=== PATIENT | female | born 2000 | race African-American/Black ===

== ENCOUNTER 2021-07-22 19:50 | Emergency (ER) | payer SELFPAY ==
[~2021-07-22] VITALS: Ht 157.5 cm; Wt 47.2 kg
--- NOTE | 2021-07-22 20:02 | NUR ---
BIBMOTHER TO ER BED 16. AAOX4. NOT IN RESP DISTRESS. SATTING 98% ON RA. PT C/O ASTHMA EXACERBATION X 1 WEEK. REPORTS USING NEBULIZER BUT STILL TIGHT ON BREATHING. AWAITING MD FOR EVAL.
[2021-07-22] MEDS ORDERED: predniSONE 20 MG TABLET ONE ×2 (20:09→20:12)
[2021-07-22] MEDS ORDERED: ALBUTEROL FS 2.5 MG/3 ML VIAL.NEB ONE (20:27)
[2021-07-22] MEDS ORDERED: IPRATROPIUM NEB FS 0.5 MG/2.5 ML AMPUL.NEB ONE (20:27)
[2021-07-22] MEDS ORDERED: ALBUTEROL FS 2.5 MG/3 ML VIAL.NEB NEB ONE (20:30)
[2021-07-22] MEDS ORDERED: IPRATROPIUM NEB FS 0.5 MG/2.5 ML AMPUL.NEB NEB ONE (20:30)
[2021-07-22] MEDS ORDERED: predniSONE 20 MG TABLET PO ONE (20:30)
[2021-07-22 21:28] LABS: BASOPHILS % (AUTO) 1.1 % (0.0-2.0); EOSINOPHILS % (AUTO) 6.3 % (0.0-6.0); HEMATOCRIT 37 % (33-45); HEMOGLOBIN 11.6 g/dL (11.5-14.8); LYMPHOCYTES # (AUTO) 1.4 K/uL (0.8-4.8); LYMPHOCYTES % (AUTO) 38.8 % (20.0-44.0); MEAN CORPUSCULAR HGB CONC 32 g/dl (31.0-36.0); MEAN CORPUSCULAR VOLUME 78 fL (82-100); MONOCYTES # (AUTO) 0.3 K/uL (0.1-1.30); MONOCYTES % (AUTO) 8.3 % (2.0-12.0); NEUTROPHILS # (AUTO) 1.6 K/uL (1.8-8.9); NEUTROPHILS % (AUTO) 45.5 % (43.0-81.0); PLATELET COUNT (AUTO) 210 K/uL (150-450); RED BLOOD CELL COUNT(AUTO) 4.67 MIL/uL (4.0-5.2); WHITE BLOOD COUNT (AUTO) 3.5 K/uL (4.3-11.0)
[2021-07-22 21:41] LABS: CALCIUM, SERUM 9.1 mg/dL (8.5-10.1); CREATININE 0.9 mg/dL (0.6-1.3); POTASSIUM 3.1 mmol/L (3.5-5.1)
[2021-07-22] MEDS ORDERED: DEXA4TAB PO (22:03)
--- NOTE | 2021-07-22 23:12 | NUR ---
Patient discharged to home in stable condition. Written and verbal after care instructions given. Patient verbalizes understanding of instruction.
[2021-07-22 23:13] VITALS: BP 123/88
== END 2021-07-22 23:12 | disposition home or self-care (01) ==
LOC: ER 19:50
DX: R06.00 Dyspnea, unspecified (principal); J45.909 Unspecified asthma, uncomplicated
CPT/HCPCS: 36415; 71045; 80048; 83880; 85025; 85378; 93005; 94640 ×2; 99285; J7512 ×2

== ENCOUNTER 2021-12-25 00:08 | Emergency (ER) | payer SELFPAY ==
[~2021-12-25] VITALS: Ht 160 cm; Wt 47.6 kg
[~2021-12-25 00:08] MED LIST: DEXA4TAB PO
--- NOTE | 2021-12-25 00:55 | NUR ---
BIB FAMILY FOR C/O N/V AND BODY PAIN X 3 HRS, FEBRILE DURING TRIAGE. PATIENT IS AMBULATORY, ABLE TO PROVIDE URINE SAMPLE. PLACED COMFORTABLY IN BED. VITALS CHECKED.
[2021-12-25] MEDS ORDERED: ONDANSETRON HCL/PF 4 MG/2 ML VIAL ONE (01:22)
[2021-12-25] MEDS ORDERED: ACETAMINOPHEN ES 500 MG TABLET ONE (01:22)
[2021-12-25] MEDS ORDERED: IV NS 0.9% 1,000 ML BAG IV ONE (01:30)
[2021-12-25] MEDS ORDERED: ACETAMINOPHEN ES 500 MG TABLET PO ONE (01:30)
[2021-12-25] MEDS ORDERED: ONDANSETRON HCL/PF 4 MG/2 ML VIAL IVP ONE (01:30)
[2021-12-25 01:39] LABS: EOSINOPHILS % (AUTO) 1.1 % (0.0-6.0); HEMATOCRIT 41 % (33-45); HEMOGLOBIN 12.9 g/dL (11.5-14.8); LYMPHOCYTES # (AUTO) 0.2 K/uL (0.8-4.8); LYMPHOCYTES % (AUTO) 3.2 % (20.0-44.0); MEAN CORPUSCULAR HGB CONC 32 g/dl (31.0-36.0); MEAN CORPUSCULAR VOLUME 77 fL (82-100); MONOCYTES # (AUTO) 0.6 K/uL (0.1-1.30); MONOCYTES % (AUTO) 8.3 % (2.0-12.0); NEUTROPHILS # (AUTO) 6.5 K/uL (1.8-8.9); NEUTROPHILS % (AUTO) 87.4 % (43.0-81.0); PLATELET COUNT (AUTO) 254 K/uL (150-450); RED BLOOD CELL COUNT(AUTO) 5.26 MIL/uL (4.0-5.2); WHITE BLOOD COUNT (AUTO) 7.5 K/uL (4.3-11.0)
[2021-12-25 01:49] LABS: CALCIUM, SERUM 9.2 mg/dL (8.5-10.1); CREATININE 0.9 mg/dL (0.6-1.3)
[2021-12-25 02:26] LABS: BILIRUBIN,DIRECT 0.1 mg/dL (0.0-0.2); BILIRUBIN,TOTAL 0.3 mg/dL (0.2-1.0); TOTAL PROTEIN, SERUM 8.1 g/dL (6.4-8.2)
[2021-12-25 03:07] LABS: BILIRUBIN,URINE NEGATIVE (NEGATIVE); COLOR,URINE YELLOW (YELLOW); LEUKOCYTE ESTERASE ,URINE NEGATIVE (NEGATIVE); NITRITE, URINE NEGATIVE (NEGATIVE); PH,URINE 5.5 (5.0-8.0); PROTEIN,URINE TRACE mg/dl (NEGATIVE); UGLUCOSE NEGATIVE (NEGATIVE); UROBILINOGEN,URINE 0.2 EU/dL (0.2)
--- NOTE | 2021-12-25 03:20 | NUR ---
PT SITTING QUIETLY IN BED, ATTACHED TO MONITOR. VSS
[2021-12-25] MEDS ORDERED: ONDA4TAB11 PO (05:20)
[2021-12-25] MEDS ORDERED: IBUP-1957 PO (05:20)
--- NOTE | 2021-12-25 05:23 | NUR ---
Patient discharged to home in stable condition. Written and verbal after care instructions given. Patient verbalizes understanding of instruction. IV removed. Catheter intact and site benign. Pressure and 4x4 applied to site. No bleeding noted. PT ambulatory with a steady gait
[2021-12-25 05:36] VITALS: BP 118/74
== END 2021-12-25 05:23 | disposition home or self-care (01) ==
LOC: ER 00:11
DX: R11.2 Nausea with vomiting, unspecified (principal); M79.10 Myalgia, unspecified site; Z20.822 Contact with and (suspected) exposure to COVID-19; J45.909 Unspecified asthma, uncomplicated
CPT/HCPCS: 99285; 96374; 96361; 87426; 87804; 85025; 80048; 83690; 80076; 84703; 81003; 36415; J2405; J7030; C9803

== ENCOUNTER 2024-10-22 01:40 | Emergency (ER) | payer MEDICAID ==
[~2024-10-22] VITALS: Ht 170.2 cm; Wt 65.8 kg
[~2024-10-22 01:40] MED LIST changes: +IBUP-1957 PO; +ONDA4TAB11 PO
[2024-10-22 02:18] LABS: PLATELET COUNT (AUTO) 282 K/uL (150-450); RED BLOOD CELL COUNT(AUTO) 4.75 MIL/uL (4.0-5.2); RED CELL DISTRIBUTION WIDTH 17.0 % (11.5-15.0); WHITE BLOOD COUNT (AUTO) 6.9 K/uL (4.3-11.0)
[2024-10-22 02:26] LABS: CALCIUM, SERUM 9.8 mg/dL (8.5-10.1); CREATININE 0.9 mg/dL (0.6-1.3); SODIUM SERUM 137 mmol/L (136-145); UREA NITROGEN, BLOOD 4 mg/dL (7-18)
[2024-10-22 02:34] LABS: ALCOHOL, BLOOD < 3 mg/dL (0-10)
[2024-10-22] MEDS ORDERED: POTASSIUM CHLORIDE 20 MEQ TAB.PRT.SR PO ONE (03:29)
[2024-10-22] MEDS: POTASSIUM CHLORIDE 20 MEQ TAB.PRT.SR PO ONE (03:32)
[2024-10-22 04:18] VITALS: BP 117/57; TEMP 98.4; O2SAT 97
== END 2024-10-22 04:19 | disposition home or self-care (01) ==
LOC: ER 01:50
DX: G40.909 Epilepsy, unspecified, not intractable, without status epilepticus (principal); F41.9 Anxiety disorder, unspecified; F44.4 Conversion disorder with motor symptom or deficit; R10.2 Pelvic and perineal pain; E87.6 Hypokalemia; J45.909 Unspecified asthma, uncomplicated; Z79.1 Long term (current) use of non-steroidal anti-inflammatories (NSAID); Z79.52 Long term (current) use of systemic steroids; Z79.899 Other long term (current) drug therapy
CPT/HCPCS: 36415; 80048-TC; 82962-TC; 83605-TC; 84702-TC; 85025-TC; G0480

== ENCOUNTER 2024-12-23 13:59 | Emergency (ER) | payer MEDICAID ==
[~2024-12-23] VITALS: Ht 162.6 cm; Wt 61.2 kg
[2024-12-23] MEDS ORDERED: ONDANSETRON HCL/PF 4 MG/2 ML VIAL ONE (14:40)
[2024-12-23 15:00] LABS: CALCIUM, SERUM 9.2 mg/dL (8.5-10.1); CREATININE 0.9 mg/dL (0.6-1.3); SODIUM SERUM 140 mmol/L (136-145); UREA NITROGEN, BLOOD 10 mg/dL (7-18)
[2024-12-23] MEDS: IV NS 0.9% 1,000 ML BAG IV ONE (15:06)
[2024-12-23 15:07] LABS: ASPARTATE AMINOTRANSFERASE 11 U/L (15-37); TOTAL PROTEIN, SERUM 7.7 g/dL (6.4-8.2)
[2024-12-23] MEDS: ONDANSETRON HCL/PF - ER 4 MG/2 ML VIAL IV ONE (15:07)
[2024-12-23 15:08] LABS: ALCOHOL, BLOOD < 3 mg/dL (0-10); PLATELET COUNT (AUTO) 274 K/uL (150-450); RED BLOOD CELL COUNT(AUTO) 4.33 MIL/uL (4.0-5.2); RED CELL DISTRIBUTION WIDTH 15.2 % (11.5-15.0); WHITE BLOOD COUNT (AUTO) 4.3 K/uL (4.3-11.0)
[2024-12-23 18:31] VITALS: BP 120/75; TEMP 98; O2SAT 98
== END 2024-12-23 18:31 | disposition home or self-care (01) ==
LOC: ER 14:20
DX: T40.711A Poisoning by cannabis, accidental (unintentional), initial encounter (principal); J45.909 Unspecified asthma, uncomplicated; Z79.1 Long term (current) use of non-steroidal anti-inflammatories (NSAID); Z79.52 Long term (current) use of systemic steroids; Z85.6 Personal history of leukemia; Z79.899 Other long term (current) drug therapy; Y92.89 Other specified places as the place of occurrence of the external cause
CPT/HCPCS: 99285; 96374; 96361; 85025; 80048; 80076; 36415; 80143; 80320; J2405 ×2; J7030; G0480

== ENCOUNTER 2025-01-25 14:08 | Emergency (ER) | payer MEDICAID ==
[~2025-01-25] VITALS: Ht 160 cm; Wt 58.1 kg
[2025-01-25] MEDS: IV NS 0.9% 1,000 ML BAG IV ONE (14:34)
[2025-01-25 14:56] LABS: PLATELET COUNT (AUTO) 279 K/uL (150-450); RED BLOOD CELL COUNT(AUTO) 4.45 MIL/uL (4.0-5.2); RED CELL DISTRIBUTION WIDTH 17.2 % (11.5-15.0); WHITE BLOOD COUNT (AUTO) 4.2 K/uL (4.3-11.0)
[2025-01-25 15:02] LABS: ACETONE, SERUM NEGATIVE (NEGATIVE)
[2025-01-25 15:15] LABS: CALCIUM, SERUM 8.6 mg/dL (8.5-10.1); CREATININE 0.9 mg/dL (0.6-1.3); SODIUM SERUM 140.0 mmol/L (136-145); UREA NITROGEN, BLOOD 7.0 mg/dL (7-18)
[2025-01-25 15:24] LABS: ASPARTATE AMINOTRANSFERASE 13.0 U/L (15-37); TOTAL PROTEIN, SERUM 7.2 g/dL (6.4-8.2)
[2025-01-25 15:26] LABS: PREGNANCY TEST SERUM QUAN 0 mIU/mL (0-6)
[2025-01-25 15:55] LABS: FRACTIONATED INSPIRED OXYGEN-V 21.0 %; SITE, VBG VBG - N/A; VBG BASE EXCESS -0.8 mmol/L (-2.0-3.0); VBG HCO3 24.9 mmol/L (22.0-29.0); VBG MetHb 0.4 % (0.5-1.5); VBG OXYGEN SATURATION 35.6 % (60.0-85.0); VBG PCO2 45.0 mmHg (38.0-54.0); VBG PH 7.360 (7.320-7.430); VBG PO2 22.4 mmHg (23.0-48.0); VBG TOTAL HEMOGLOBIN 11.4 G/dL (12.0-16.0)
[2025-01-25 16:01] LABS: APPEARANCE,URINE SLIGHTLY CLOUDY (CLEAR); BLOOD, URINE NEGATIVE Ery/uL (NEGATIVE); LEUKOCYTE ESTERASE ,URINE TRACE (NEGATIVE); NITRITE, URINE NEGATIVE (NEGATIVE); UGLUCOSE NEGATIVE (NEGATIVE)
[2025-01-25 16:09] VITALS: BP 102/65; TEMP 98.1; O2SAT 100
[2025-01-25 16:11] LABS: ADD URINE CULTURE YES
== END 2025-01-25 16:10 | disposition home or self-care (01) ==
LOC: ER 14:10
DX: R53.1 Weakness (principal); J45.909 Unspecified asthma, uncomplicated; R10.22 Pelvic and perineal pain left side; Z79.1 Long term (current) use of non-steroidal anti-inflammatories (NSAID); Z79.52 Long term (current) use of systemic steroids; Z85.6 Personal history of leukemia
CPT/HCPCS: 99284; 96360; 93005; 82803; 85025; 80048; 87086; 82010; 83690; 80076; 81001; 36415; 82962; 84702; J7030